=== PATIENT | female | born 1970 | race Caucasian/White ===

== ENCOUNTER 2020-06-13 08:10 | Emergency (ER) | payer OTHER, SELFPAY ==
[2020-06-13 08:17] VITALS: BP 139/94; BP 144/87; PULSE 83; PULSE 90; RESP 16; TEMP 36.4; O2SAT 97; O2SAT 99; BMI 28.8
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
== END 2020-06-13 09:44 | disposition home or self-care (01) ==
PROVIDERS: Emergency Provider Internal Medicine; PCP Internal Medicine
DX: S80.11XA Contusion of right lower leg, initial encounter (principal); M79.605 Pain in left leg; M79.604 Pain in right leg; V43.52XA Car driver injured in collision with other type car in traffic accident, initial encounter; Y93.9 Activity, unspecified; Y92.410 Unspecified street and highway as the place of occurrence of the external cause
CPT/HCPCS: 99282; 99284